=== PATIENT | male | born 1945 | race African-American/Black ===

== ENCOUNTER 2023-09-01 23:10 | Emergency (ER) | payer OTHER ==
[~2023-09-01] VITALS: Ht 185.4 cm; Wt 80.0 kg
[2023-09-01 23:23] VITALS: O2SAT 99
[2023-09-02 00:32] LABS: BASOPHILS % 0.5 % (0.0-2.0); EOSINOPHILS % 0.8 % (0.0-5.0); HEMATOCRIT. 38.5 % (42.0-52.0); HEMOGLOBIN. 13.5 g/dL (14.0-18.0); LYMPHOCYTES % 14.9 % (20.0-50.0); MEAN CORPUSCULAR HEMOGLOBIN 32.7 pg (28.0-32.0); MEAN CORPUSCULAR VOLUME 93.5 fL (80.0-94.0); MEAN PLATELET VOLUME 8.5 fl (7.4-10.4); NEUTROPHILS % 75.8 % (40.0-76.0); PLATELET 156 x1000/uL (130-400); RED BLOOD CELL COUNT 4.12 mill/uL (4.7-6.1)
[2023-09-02 00:59] LABS: CHLORIDE 108 mEq/L (98-107); POTASSIUM 3.7 mEq/L (3.5-5.1); SODIUM 139 mEq/L (136-145)
[2023-09-02 01:00] LABS: CALCIUM 9.1 mg/dL (8.7-10.4); CARBON DIOXIDE 25 mEq/L (21-32)
[2023-09-02 01:05] LABS: CREATININE 0.7 mg/dL (0.6-1.3); GLUCOSE 105 mg/dL (70-105); UREA NITROGEN BLOOD 15 mg/dL (9-23)
[2023-09-02 01:19] LABS: TROPONIN I HIGH SENSITIVITY < 4 ng/L (3.0-53)
[2023-09-02 02:00] VITALS: BP 109/63; PULSE 46; RESP 16; TEMP 97.9
[2023-09-02 02:07] LABS: TROPONIN I HIGH SENSITIVITY 5 ng/L (3.0-53)
== END 2023-09-02 04:18 | disposition short-term general hospital (02) ==
LOC: ER 23:10
DX: R07.89 Other chest pain (principal); R00.2 Palpitations; R42 Dizziness and giddiness; I10 Essential (primary) hypertension
CPT/HCPCS: 36415; 71045; 80048; 84484; 85025; 99285